=== PATIENT | female | born 1940 | race Caucasian/White ===

== ENCOUNTER 2017-11-24 15:33 | Outpatient (CLI) | payer OTHER | END 2017-11-24 15:34 | disposition home or self-care (01) | LOC: BICMAMMO 15:33 | PROVIDERS: ATTEND Obstetrics & Gynecology | DX: Z12.31 Encounter for screening mammogram for malignant neoplasm of breast (principal); Z13.820 Encounter for screening for osteoporosis | CPT/HCPCS: 77063; 77067; 77080 ==

== ENCOUNTER 2020-09-01 12:44 | Outpatient (CLI) | payer MEDICARE ==
--- NOTE | 2020-09-01 13:27 | MMO ---
Bilateral MAMMO Bilat Screen [facility]. CLINICAL HISTORY: Patient is 79 years old and is seen for screening. The patient has no family history of breast cancer. The patient has no personal history of cancer. The patient has a history of right Excisional Biopsy in 1995 - benign. VIEWS: The views performed were: bilateral craniocaudal with tomosynthesis and bilateral mediolateral oblique with tomosynthesis. FILMS COMPARED: The present examination has been compared to prior imaging studies performed at [facility] on 09/20/2011, 09/26/2012, 12/05/2014 and 11/24/2017. This study has been interpreted with the assistance of computer-aided detection. MAMMOGRAM FINDINGS: There are scattered fibroglandular densities. There are no suspicious masses, suspicious calcifications, or new areas of architectural distortion. IMPRESSION: THERE IS NO MAMMOGRAPHIC EVIDENCE OF MALIGNANCY. A ROUTINE FOLLOW-UP MAMMOGRAM IN 1 YEAR IS RECOMMENDED. THE RESULTS OF THIS EXAM WERE SENT TO THE PATIENT. ACR BI-RADS Category 1 - Negative MAMMOGRAPHY NOTE: 1. A negative mammogram report should not delay a biopsy if a dominant of clinically suspicious mass is present. 2. Approximately 10% to 15% of breast cancers are not detected by mammography. 3. Adenosis and dense breasts may obscure an underlying neoplasm. Reported by: ROSANA MAJOR MD Electonically Signed: [id number]
--- NOTE | 2020-09-01 15:32 | BD ---
BONE DENSITOMETRY USING DEXA: Date: 09/01/2020 HISTORY: Osteoporosis. FINDINGS: Lumbar Spine: BMD (g/cm2) L1 0.965 T-Score: -0.2 Z-Score: 2.2 L2 0.979 T-Score: -0.4 Z-Score: 2.3 L3 0.894 T-Score: -1.7 Z-Score: 1.1 L4 1.087 T-Score: 0.2 Z-Score: 3.2 L1-L4 0.988 T-Score: -0.5 Z-Score: 2.2 Femoral Neck: 0.534 T-Score: -2.8 Z-Score: -0.5 Total Femur: 0.630 T-Score: -2.6 Z-Score: -0.4 There has been interval improvement of 10.2% in the bone mineral density of the lumbar spine and a re duction of 19.1% in the bone mineral density of the proximal femur since 05/30/2007. IMPRESSION: Osteoporosis. POS: AH
== END 2020-09-01 12:45 | disposition home or self-care (01) ==
LOC: BICMAMMO 12:44
PROVIDERS: ATTEND Nurse Practitioner Adult Health
DX: Z12.31 Encounter for screening mammogram for malignant neoplasm of breast (principal); Z13.820 Encounter for screening for osteoporosis; M81.0 Age-related osteoporosis without current pathological fracture; Z78.0 Asymptomatic menopausal state; Z91.89 Other specified personal risk factors, not elsewhere classified
CPT/HCPCS: 77063; 77067; 77080